=== PATIENT | female | born 1990 | race Native Hawaiian/Other Pacific Islander ===

== ENCOUNTER 2017-01-17 14:19 | Outpatient (CLI) | payer OTHER | END 2017-01-17 15:30 | disposition home or self-care (01) | LOC: RAD 14:19 | DX: S69.82XA Other specified injuries of left wrist, hand and finger(s), initial encounter (principal) ==

== ENCOUNTER 2021-11-05 15:47 | Outpatient (CLI) | payer OTHER | END 2021-11-05 20:21 | disposition home or self-care (01) | LOC: RAD 15:47 | PROVIDERS: ATTEND Plastic Surgery Plastic Surgery Within the Head and Neck | DX: Z01.811 Encounter for preprocedural respiratory examination (principal) ==